=== PATIENT | male | born 1940 | race Caucasian/White ===

== ENCOUNTER 2019-02-11 20:33 | Emergency (ER) | payer OTHER ==
[2019-02-11 21:36] LABS: Urine Blood NEGATIVE (NEG); Urine Glucose NEGATIVE (NEG); Urine Protein TRACE (NEG); Urine pH 5.5 (5.0-7.0)
[2019-02-11 22:37] LABS: Protime INR 1.18
[2019-02-11 22:43] LABS: Absolute Lymphocytes (CBC) 0.9 K/uL (0.7-4.9); Absolute Monocytes 0.8 K/uL (0.1-1.3); Absolute Neutrophil 8.7 K/uL (1.8-8.0); Basophils % 0.4 % (0-1.3); Eosinophils % 0.8 % (0-4.4); Hematocrit 46.8 % (39.6-49.0); MPV 8.4 fL (7.6-11.3); Monocytes % 7.6 % (3.3-12.3); RBC Red Blood Cell Count 4.86 M/uL (4.33-5.43)
[2019-02-11 22:56] LABS: ALT/SGPT 15 U/L (12-78); AST/SGOT 9 U/L (15-37); Albumin 3.4 g/dL (3.4-5.0); Alkaline Phosphatase 47 U/L (45-117); BUN Blood Urea Nitrogen 29 mg/dL (7-18); Bicarbonate 23 mmol/L (21-32); Bilirubin Direct 0.1 mg/dL (0-0.2); Bilirubin Total 0.6 mg/dL (0.2-1.0); Glucose Level 121 mg/dL (74-106); NT PRO-BNP 702 pg/mL (<450); Potassium 4.4 mmol/L (3.5-5.1); Protein, Total 7.4 g/dL (6.4-8.2); Sodium Level 140 mmol/L (136-145); Troponin (Emerg Dept Use Only) < 0.02 ng/mL (0.0-0.045)
[2019-02-12] MEDS ORDERED: MECLIZINE HCL 12.5 MG TAB ONE (00:28)
--- NOTE | 2019-02-12 00:54 | EDPHYS ---
Physician Documentation [facility] Name: Manuelito Najera Age: 78 yrs Sex: Male : 1940 Arrival Date: 02/11/2019 Time: 20:34 Bed 20 Private MD: Gavin Saeed ED Physician Francesco Canchola HPI: 02/11 23:00 This 78 yrs old Male presents to ER via Ambulatory with complaints of pm1 Dizziness, Can't walk, Nausea. 23:00 The patient presents with vertigo. Onset: The symptoms/episode began/occurred 2 year(s) pm1 ago, worse for the past 2 weeks. Context: occurred at home, occurred while the patient was changing position and worse with putting his head forward. just prior to the episode the patient experienced no apparent symptoms. Modifying factors: the symptoms are aggravated by movement of head, changing position. Associated signs and symptoms: Pertinent negatives: abdominal pain, blurred vision, chest pain, focal weakness, numbness, shortness of breath, vomiting. Severity of symptoms: in the emergency department the symptoms are worse. Patient's baseline: Neuro: alert and fully oriented, Motor: no deficits, Ambulation: walks without assistance. The patient has not experienced similar symptoms in the past. Has seen multiple neurologist for the same complaint and instructed to take OTC Dramamine recently. Historical: - Allergies: 20:45 No Known Allergies; ak1 - Home Meds: 21:02 B-12 1000 [Active]; aspirin 81 mg Oral chew 1 tab once daily [Active]; carvedilol 12.5 bb mg oral tab [Active]; Zantac Oral [Active]; alfalfa oral oral [Active]; prostate lest [Active]; - PMHx: 20:45 Hypertension; Hyperlipidemia; ak1 - PSHx: 20:45 back sx; Carpal Tunnel Repair; ak1 - Immunization history:: Adult Immunizations unknown. - Social history:: Smoking status: Patient/guardian denies using tobacco. - Ebola Screening: : No symptoms or risks identified at this time. ROS: 23:00 Constitutional: Negative for fever, chills, and weight loss, Eyes: Negative for injury, pm1 pain, redness, and discharge, ENT: Negative for injury, pain, and discharge, Neck: Negative for injury, pain, and swelling, Cardiovascular: Negative for chest pain, palpitations, and edema, Respiratory: Negative for shortness of breath, cough, wheezing, and pleuritic chest pain, Abdomen/GI: Negative for abdominal pain, nausea, vomiting, diarrhea, and constipation, Back: Negative for injury and pain, : Negative for injury, bleeding, discharge, and swelling, MS/Extremity: Negative for injury and deformity, Skin: Negative for injury, rash, and discoloration. 23:00 Neuro: Positive for dizziness, Negative for numbness, tingling. Exam: 23:00 Constitutional: This is a well developed, well nourished patient who is awake, alert, pm1 and in no acute distress. Head/Face: Normocephalic, atraumatic. ENT: Nares patent. No nasal discharge, no septal abnormalities noted. Tympanic membranes are normal and external auditory canals are clear. Oropharynx with no redness, swelling, or masses, exudates, or evidence of obstruction, uvula midline. Mucous membranes moist. Neck: Trachea midline, no thyromegaly or masses palpated, and no cervical lymphadenopathy. Supple, full range of motion without nuchal rigidity, or vertebral point tenderness. No Meningismus. 23:00 Chest/axilla: Normal chest wall appearance and motion. Nontender with no deformity. No lesions are appreciated. Cardiovascular: Regular rate and rhythm with a normal S1 and S2. No gallops, murmurs, or rubs. Normal PMI, no JVD. No pulse deficits. Respiratory: Lungs have equal breath sounds bilaterally, clear to auscultation and percussion. No rales, rhonchi or wheezes noted. No increased work of breathing, no retractions or nasal flaring. Abdomen/GI: Soft, non-tender, with normal bowel sounds. No distension or tympany. No guarding or rebound. No evidence of tenderness throughout. Back: No spinal tenderness. No costovertebral tenderness. Full range of motion. Skin: Warm, dry with normal turgor. Normal color with no rashes, no lesions, and no evidence of cellulitis. MS/ Extremity: Pulses equal, no cyanosis. Neurovascular intact. Full, normal range of motion. 23:00 Eyes: Nystagmus: vestibular nystagmus. 23:00 Neuro: Orientation: is normal, Motor: is normal, moves all fours. Vital Signs: 20:45 BP 139 / 94; Pulse 113; Resp 18; Temp 100.1; Pulse Ox 97% on R/A; Weight 95.25 kg (R); ak1 Height 6 ft. 0 in. (182.88 cm) (R); Pain 3/10; 21:49 BP 134 / 67; Pulse 88; Resp 21; Pulse Ox 96% on R/A; Pain 0/10; ao 23:43 BP 141 / 83; Pulse 102; Resp 16; Temp 98.3(O); Pulse Ox 96% on R/A; jb4 02/12 00:26 BP 139 / 70; Pulse 83; Resp 18; Pulse Ox 98% on R/A; oe 02/11 20:45 Body Mass Index 28.48 (95.25 kg, 182.88 cm) ak1 MDM: 02/11 21:49 Patient medically screened. pm1 02/12 00:22 Data reviewed: vital signs. Data interpreted: Pulse oximetry: on room air is 96 %. pm1 Interpretation: normal. Counseling: I had a detailed discussion with the patient and/or guardian regarding: the historical points, exam findings, and any diagnostic results supporting the discharge/admit diagnosis, lab results, radiology results, the need for outpatient follow up, to return to the emergency department if symptoms worsen or persist or if there are any questions or concerns that arise at home. 00:49 ED course: symptoms greatly improved with meclizine given in the ER. pm1 02/11 21:07 Order name: Urine Dipstick--Ancillary (enter results); Complete Time: 22:07 [facility] 02/11 22:08 Order name: Basic Metabolic Panel pm1 02/11 22:08 Order name: CBC with Diff; Complete Time: 23:46 pm1 02/11 22:08 Order name: LFT's; Complete Time: 23:46 pm1 02/11 22:08 Order name: Magnesium; Complete Time: 23:46 pm1 02/11 22:08 Order name: NT PRO-BNP; Complete Time: 23:46 pm1 02/11 22:06 Order name: CT Head Brain wo Cont pm1 02/11 22:08 Order name: PT-INR; Complete Time: 23:46 pm1 02/11 22:08 Order name: Troponin (emerg Dept Use Only); Complete Time: 23:46 pm1 02/11 22:08 Order name: XRAY Chest (1 view) pm1 02/11 22:08 Order name: EKG; Complete Time: 22:09 pm1 02/11 22:08 Order name: Cardiac monitoring; Complete Time: 22:16 pm1 02/11 22:09 Order name: Basic Metabolic Panel; Complete Time: 23:46 EDMS 02/11 22:08 Order name: EKG - Nurse/Tech; Complete Time: 22:16 pm1 02/11 22:08 Order name: IV Saline Lock; Complete Time: 22:16 pm1 02/11 22:08 Order name: Labs collected and sent; Complete Time: 22:16 pm1 02/11 22:08 Order name: O2 Per Protocol; Complete Time: 22:16 pm1 02/11 22:08 Order name: O2 Sat Monitoring; Complete Time: 22:16 pm1 Administered Medications: 00:18 Drug: Meclizine 50 mg Route: PO; ao 01:52 Follow up: Response: No adverse reaction ao Disposition: 01:54 Co-signature as Attending Physician, Francesco Canchola MD. chrissie Disposition: 02/12/19 00:53 Discharged to Home. Impression: Benign paroxysmal vertigo. - Condition is Stable. - Discharge Instructions: Benign Positional Vertigo. - Prescriptions for Meclizine 25 mg Oral Tablet - take 1 tablet by ORAL route every 8 hours As needed; 30 tablet. - Medication Reconciliation Form, Thank You Letter, Antibiotic Education, Prescription Opioid Use form. - Follow up: Emergency Department; When: As needed; Reason: Worsening of condition. Follow up: Private Physician; When: 2 - 3 days; Reason: Recheck today's complaints, Continuance of care, Re-evaluation by your physician. - Problem is new. - Symptoms have improved. Signatures: Dispatcher [employer] EDFrancesco Zhu MD MD pkSilvia Weaver RN RN bb Krenek, Amber, RN RN ak1 Ortiz, Alex RN Ritesh Laws, MUSHROOM PRESS OPERATOR MUSHROOM PRESS OPERATOR pm1 Corrections: (The following items were deleted from the chart) 01:48 00:53 02/12/2019 00:53 Discharged to Home. Impression: Benign paroxysmal vertigo. ao Condition is Stable. Forms are Medication Reconciliation Form, Thank You Letter, Antibiotic Education, Prescription Opioid Use. Follow up: Emergency Department; When: As needed; Reason: Worsening of condition. Follow up: Private Physician; When: 2 - 3 days; Reason: Recheck today's complaints, Continuance of care, Re-evaluation by your physician. Problem is new. Symptoms have improved. pm1
--- NOTE | 2019-02-12 00:54 | ER ---
Nurse's Notes [facility] Name: Manuelito Najera Age: 78 yrs Sex: Male : 1940 Arrival Date: 02/11/2019 Time: 20:34 Bed 20 Private MD: Gavin Saeed Diagnosis: Benign paroxysmal vertigo Presentation: 02/11 20:41 Presenting complaint: Patient states: dizziness X2 years, dizziness stops after sitting ak1 down increased with standing and bending. pt c/o generalized weakness "for a couple of years" "some days are worse some days are better". Transition of care: patient was not received from another setting of care. Onset of symptoms is unknown. Risk Assessment: Do you want to hurt yourself or someone else? Patient reports no desire to harm self or others. Care prior to arrival: None. 20:41 Method Of Arrival: Ambulatory ak1 20:41 Acuity: EVGENY 3 ak1 21:32 Initial Sepsis Screen: Does the patient meet any 2 criteria? No. Patient's initial ao sepsis screen is negative. Does the patient have a suspected source of infection? No. Patient's initial sepsis screen is negative. Triage Assessment: 20:45 General: Appears uncomfortable, Behavior is cooperative. ak1 21:32 GI: Reports. ao Historical: - Allergies: 20:45 No Known Allergies; ak1 - Home Meds: 21:02 B-12 1000 [Active]; aspirin 81 mg Oral chew 1 tab once daily [Active]; carvedilol 12.5 bb mg oral tab [Active]; Zantac Oral [Active]; alfalfa oral oral [Active]; prostate lest [Active]; - PMHx: 20:45 Hypertension; Hyperlipidemia; ak1 - PSHx: 20:45 back sx; Carpal Tunnel Repair; ak1 - Immunization history:: Adult Immunizations unknown. - Social history:: Smoking status: Patient/guardian denies using tobacco. - Ebola Screening: : No symptoms or risks identified at this time. Screenin:31 Abuse screen: Denies threats or abuse. Denies injuries from another. Nutritional ao screening: No deficits noted. Tuberculosis screening: No symptoms or risk factors identified. Fall Risk Fall in past 12 months (25 points). Assessment: 21:00 General: Appears in no apparent distress. uncomfortable, Behavior is calm, cooperative, ao appropriate for age. Pain: Denies pain. Neuro: No deficits noted. Level of Consciousness is awake, alert, obeys commands, Oriented to person, place, time, situation, Appropriate for age Moves all extremities. Full function Speech is normal, is slurred, Reports blurred vision dizziness, weakness since 3 months. Cardiovascular: Capillary refill < 3 seconds Patient's skin is warm and dry. Respiratory: Airway is patent Respiratory effort is even, unlabored, Respiratory pattern is regular, symmetrical. GI: Abdomen is flat, non-distended. : No signs and/or symptoms were reported regarding the genitourinary system. EENT: No signs and/or symptoms were reported regarding the EENT system. Derm: No signs and/or symptoms reported regarding the dermatologic system. Skin is intact. Musculoskeletal: No signs and/or symptoms reported regarding the musculoskeletal system. 23:44 Reassessment: Patient appears in no apparent distress at this time. Patient and/or jb4 family updated on plan of care and expected duration. Pain level reassessed. Patient is alert, oriented x 3, equal unlabored respirations, skin warm/dry/pink. Pt is sitting in the bedside chair. 02/12 01:46 Reassessment: DC instructions given to patient. Patient agree with the POC and to ao follow up with PCP. Patient has no questions. Vital Signs: 02/11 20:45 BP 139 / 94; Pulse 113; Resp 18; Temp 100.1; Pulse Ox 97% on R/A; Weight 95.25 kg (R); ak1 Height 6 ft. 0 in. (182.88 cm) (R); Pain 3/10; 21:49 BP 134 / 67; Pulse 88; Resp 21; Pulse Ox 96% on R/A; Pain 0/10; ao 23:43 BP 141 / 83; Pulse 102; Resp 16; Temp 98.3(O); Pulse Ox 96% on R/A; jb4 02/12 00:26 BP 139 / 70; Pulse 83; Resp 18; Pulse Ox 98% on R/A; oe 02/11 20:45 Body Mass Index 28.48 (95.25 kg, 182.88 cm) ak1 ED Course: 02/11 20:34 Patient arrived in ED. am2 20:34 Gavin Saeed DO is Private Physician. am2 20:43 Triage completed. ak1 20:45 Arm band placed on Patient placed in an exam room, Patient notified of wait time. ak1 21:31 Patrick Rosenbaum, RN is Primary Nurse. ao 21:32 Patient has correct armband on for positive identification. potline monitor on. Pulse ao ox on. NIBP on. 21:39 Ritesh Fuentes NP is PHCP. pm1 21:39 Francesco Canchola MD is Attending Physician. pm1 22:[address] vm2 22:22 XRAY Chest (1 view) In Process Unspecified. EDMS 22:32 CT completed. Patient tolerated procedure well. Patient moved back from CT. nj 22:39 CT Head Brain wo Cont In Process Unspecified. EDMS 04 01:47 No provider procedures requiring assistance completed. IV discontinued, intact, ao bleeding controlled, No redness/swelling at site. Pressure dressing applied. Administered Medications: 00:18 Drug: Meclizine 50 mg Route: PO; ao 01:52 Follow up: Response: No adverse reaction ao Outcome: 00:53 Discharge ordered by MD. pm1 01:47 Discharged to home ambulatory. ao 01:47 Condition: stable 01:47 Discharge instructions given to patient, family, Instructed on discharge instructions, follow up and referral plans. Demonstrated understanding of instructions, follow-up care, medications, Prescriptions given X 1. 01:48 Patient left the ED. ao Signatures: Dispatcher [employer] EDMS Silvia Nicolas RN RN bb Krenek, Amber, RN RN ak1 Patrick Rosenbaum, Ritesh Laws RN, NP PREP COOK pm1 Rafi Gallo RN RN jb4 Jordan, Nathan nj Espinosa, Orlando oe Moreno, Amanda amXimena Kebede [facility]
--- NOTE | 2019-02-12 07:34 | EKG ---
Test Date: 2019-02-11 Test Time: 22:22:55 [employer] Worker: CHAYITO MEASUREMENT RESULTS: Intervals: Rate: 81 MS: 154 QRSD: 100 QT: 388 QTc: 450 [place]: P: -5 MS: 154 QRS: -66 T: 34 INTERPRETIVE STATEMENTS: Normal sinus rhythm Left anterior fascicular block Abnormal ECG Compared to ECG 12/11/2000 09:39:00 Left anterior fascicular block now present Sinus arrhythmia no longer present Electronically Signed On 02-12-19 07:33:37 CDT by Zaheer Low
--- NOTE | 2019-02-12 08:17 | RAD REPORT ---
EXAM DESCRIPTION: RAD - Chest Single View - 02/11/2019 10:22 pm CLINICAL HISTORY: dizziness Chest pain. COMPARISON: No comparisons FINDINGS: Portable technique limits examination quality. The lungs are grossly clear. The heart is normal in size. No displaced fractures. IMPRESSION: No acute intrathoracic process suspected.
--- NOTE | 2019-02-13 11:13 | RAD REPORT ---
EXAM DESCRIPTION: CT Head Brain Wo Cont CLINICAL HISTORY: 78 years Male DIZZINESS TECHNIQUE: Contiguous axial CT images obtained through the brain without IV contrast. Coronal and sagittal reformatted images also provided. This exam was performed according to our department optimization program which includes automated exp osure control, adjustment of the mA and/or kv according to patient size and/or use of iterative recon struction technique. COMPARISON: No prior exams provided for comparison. FINDINGS: There is no intracranial hemorrhage, extraaxial collection, or evidence of acute transcort ical infarction. Patchy areas of low attenuation within the periventricular and subcortical white matter are most comp atible with chronic microvascular disease. There are basal ganglia calcifications and moderate diff use volume loss without mass effect or midline shift. Dieter cisterna magna incidentally noted. Vascular calcifications are noted. No lesion of the skull base or calvarium is identified. Small mucosal polyp in the right maxillary sinus. The remainder of the visualized paranasal sinuses a nd mastoid air cells are clear. IMPRESSION: No acute intracranial abnormality. Chronic microvascular changes and volume loss. Electronically signed by: Niharika Castellon MD 02/11/2019 10:53 PM CDT Due to temporary technical issues with the PACS/Fluency reporting system, reports are being signed by the in house radiologist as a courtesy to ensure prompt reporting. The interpreting radiologist is f chuckyly responsible for the content of the report.
== END 2019-02-12 01:48 | disposition home or self-care (01) ==
LOC: ER 20:33
DX: H81.10 Benign paroxysmal vertigo, unspecified ear (principal); I10 Essential (primary) hypertension; E78.5 Hyperlipidemia, unspecified
CPT/HCPCS: 36415; 70450; 71045; 80048; 80076; 81003; 83735; 83880; 84484; 85025; 85610; 93005; 99285

== ENCOUNTER 2020-08-26 11:52 | Emergency (ER) | payer OTHER ==
--- OUTSIDE RECORDS SUMMARY | 2020-08-26 12:12 | XMS REPORT | Clinical Summary ---
:1940 Author Organization [facility] Address [address] [place] [id number] Care Team Providers Name Role Phone Gavin Saeed Primary Care Provider Allergies No Known Active Allergies Medications Medication Sig Dispensed Refills Start Date End Date Status carvedilol (COREG) 12.5 Take 12.5 mg by 0 Active MG tablet mouth 2 (two) times a day with meals. pentoxifylline (TRENTal) Take 400 mg by 0 Active 400 mg CR tablet mouth 3 (three) times a day with meals. Active Problems Not on file Surgical History Surgery Date Site/Laterality Comments HAND SURGERY Right BACK SURGERY Family History Medical History Relation Name Comments No Known Problems Father No Known Problems Mother Relation Name Status Comments Father Mother Social History Tobacco Use Types Packs/Day Years Used Date Never Smoker Smokeless Tobacco: Never Used Alcohol Use Drinks/Week oz/Week Comments No Alcohol Habits Answer Date Recorded How often do you have a drink containing alcohol? Never 12/10/2018 How many drinks containing alcohol do you have on a typical Not asked day when you are drinking? How often do you have six or more drinks on one occasion? No t asked Sex Assigned at Date Recorded Not on file Last Filed Vital Signs Not on file Plan of Treatment Health Maintenance Due Date Last Done Comments SHINGLES VACCINES (#1) 1991 65+ PNEUMOCOCCAL VACCINE (1 of 1 - PPSV23) 2006 INFLUENZA VACCINE 05/29/2020 Results Not on fileafter 08/26/2019 Advance Directives For more information, please contact: [phone] Type Date Recorded Patient Assistant Account Executive Explanati on Advance Directives, Living Will and Medical Power of Cigarette Packer
[2020-08-26] MEDS ORDERED: NA CHLORIDE 0.9% 500 ML ONE ×2 (12:38→17:01)
[2020-08-26] MEDS ORDERED: ONDANSETRON 4 MG/2 ML VIAL ONE (12:38)
[2020-08-26] MEDS ORDERED: MORPHINE 2 MG/ML SYR ONE (12:38)
[2020-08-26] MEDS ORDERED: FAMOTIDINE 20 MG/2 ML VIAL IV ONE (12:38)
[2020-08-26 12:43] LABS: Absolute Lymphocytes (CBC) 2.4 K/uL (0.7-4.9); Basophils % 0.3 % (0-1.3); Hematocrit 30.4 % (39.6-49.0); Lymphocytes % 20.9 % (15.3-44.8); MPV 8.5 fL (7.6-11.3); RBC Red Blood Cell Count 3.12 M/uL (4.33-5.43)
[2020-08-26 12:47] LABS: Protime INR 1.18
[2020-08-26 12:57] LABS: Albumin 2.9 g/dL (3.4-5.0); Bilirubin Direct 0.1 mg/dL (0-0.2); Bilirubin Total 0.4 mg/dL (0.2-1.0); Magnesium 2.8 mg/dL (1.8-2.4); Potassium 4.9 mmol/L (3.5-5.1); Protein, Total 6.1 g/dL (6.4-8.2)
--- NOTE | 2020-08-26 15:02 | RAD REPORT ---
EXAM DESCRIPTION: CT - Abdomen Pelvis Wo Contrast - 08/26/2020 2:40 pm CLINICAL HISTORY: ABD PAIN COMPARISON: No comparisons TECHNIQUE: Axial [address] imaging of the abdomen and pelvis was performed without IV contrast. No IV contrast was given because of allergy, abnormal renal function, patient refusal or physician re quest. Oral contrast was given. All CT scans are performed using dose optimization technique as appropriate and may include automated exposure control or mA/KV adjustment according to patient size. FINDINGS: No suspicious findings in the lung bases. The liver, spleen and pancreas show no suspicious findings on non-contrast imaging. A 10 millimeter g allstone is present at the neck of the gallbladder near the cystic duct. There is an adjacent 4 jenny meter gallstone. Gallbladder is not distended. No biliary tree dilatation. No hydronephrosis or suspicious renal mass. Small left-sided parapelvic cysts are present. The right kidney is significantly atrophic and likely has little or no function. No worrisome right renal mass. No significant adrenal finding. Isodense renal masses and pyelonephritis cannot be excluded in the absence of IV contrast. The urinary bladder is without significant finding. Small hiatal hernia is present. No gastric wall thickening or mass. Heller of the proximal duodenum ap pear slightly thickened or edematous. This could be true wall thickening or an artifact of peristalsi s. Distal duodenum is unremarkable. Remainder of the small bowel unremarkable as well. The appendix i s normal. Patient has a large fatty ileocecal valve as a normal variant. Sigmoid is tortuous and redu ndant. Diverticulosis is mild for age. No diverticulitis. No active colon process. No free air, free fluid or pneumatosis. There is trace amount of stranding adjacent to the proximal duodenum. No mass or bulky lymphadenopathy. Small to moderate-sized fat filled right inguinal hernia present. No suspicious bony findings. Disc and bone degenerative changes are present. IMPRESSION: A 10 millimeter gallstone is present in the neck of the gallbladder and would be a possi ble source for pain. Gallbladder is not distended. No biliary tree dilatation. Duodenal bulb and proximal duodenal C-loop show wall thickening with a trace amount of stranding. Thi s is often a peristalsis artifact. A mild duodenitis would be possible. Sigmoid diverticulosis without diverticulitis. No acute colon or small bowel process otherwise noted. Additional nonacute findings detailed in the body of the report. Full assessment is limited is the absence of IV contrast.
--- NOTE | 2020-08-26 16:09 | ER ---
Nurse's Notes [facility] Name: Manuelito Najera Age: 79 yrs Sex: Male : 1940 Arrival Date: 08/26/2020 Time: 11:54 Bed 14 Private MD: Diagnosis: Gastrointestinal hemorrhage, unspecified;Anemia in other chronic diseases classified elsewhere;Unspecified kidney failure Presentation: 08/26 12:12 Chief complaint: Patient states: abd pain x 1 week. N/V that began yesterday. ss Coronavirus screen: Client denies travel out of the [place] in the last 14 days. Ebola Screen: Patient denies exposure to infectious person. Patient denies travel to an Ebola-affected area in the 21 days before illness onset. Initial Sepsis Screen: Does the patient meet any 2 criteria? HR > 90 bpm. Does the patient have a suspected source of infection? No. Patient's initial sepsis screen is negative. Risk Assessment: Do you want to hurt yourself or someone else? Patient reports no desire to harm self or others. Onset of symptoms was August 19, 2020. 12:12 Method Of Arrival: Ambulatory ss 12:12 Acuity: EVGENY 3 ss Historical: - Allergies: 12:15 No Known Allergies; ss - Home Meds: 16:18 allopurinol 100 mg Oral tab 1 tab once daily [Active]; pravastatin 40 mg oral tab 1 tab ss once daily [Active]; aspirin 81 mg oral TbEC 1 tab once daily [Active]; losartan 25 mg oral tab 0.5 tab once daily [Active]; - PMHx: 12:15 Hyperlipidemia; Hypertension; ss 16:18 GERD; ss 17:58 Parkinsons; ss - PSHx: 12:15 Carpal Tunnel Repair; back sx; ss - Immunization history:: Adult Immunizations up to date. - Social history:: Smoking status: Patient denies any tobacco usage or history of. Screenin:12 Fall Risk None identified. ss 13:57 Abuse screen: Denies threats or abuse. Nutritional screening: No deficits noted. ll2 Tuberculosis screening: No symptoms or risk factors identified. Assessment: 12:12 General: Appears uncomfortable, Behavior is calm, cooperative. Pain: Complains of pain ss in abdomen Pain currently is 10 out of 10 on a pain scale. Quality of pain is described as aching, Pain began x 2 weeks. Worse since yesterday Is intermittent. Cardiovascular: Capillary refill < 3 seconds is brisk in bilateral fingers. GI: Abd is soft X 4 quads Abdomen is tender to palpation in center of abd Reports nausea, vomiting, since yesterday. GI: Bowel sounds present X 4 quads. : Denies burning with urination, urinary frequency. EENT: Nares are clear. Derm: Skin is intact, is healthy with good turgor, Skin is dry, Skin is pink, warm \T\ dry. normal. Musculoskeletal: Circulation, motion, and sensation intact. Range of motion: intact in all extremities, Swelling absent. 12:57 Reassessment: Patient appears in no apparent distress at this time. Patient and/or ss family updated on plan of care and expected duration. Pain level reassessed. Patient states feeling better. Patient states symptoms have improved. Pt reports much relief after medication administration. Awaiting CT scan. Mimi biometric fingerprinting technician notified that patient completed drinking oral contrast 8 minutes ago. . Neuro: Level of Consciousness is awake, alert. Respiratory: Airway is patent Respiratory effort is even, unlabored. 14:32 Reassessment: Pt is resting at this time. Eyes closed. Respirations remain even and ss unlabored. 14:36 Reassessment: Pt to CT now. 15:30 Reassessment: Patient appears in no apparent distress at this time. Patient and/or ss family updated on plan of care and expected duration. Pain level reassessed. Patient is alert, oriented x 3, equal unlabored respirations, skin warm/dry/pink. 16:30 Reassessment: No changes from previously documented assessment. 18:02 Reassessment: Report called to FARIDA Bar. Awaiting [facility] ambulance for transportation to [facility] who reports that ETA will be approximately 1.5 hours. Family and patient updated on plan of care. Vital Signs: 12:07 BP 124 / 79; Pulse 107; Resp 20; Temp 98.9(O); Pulse Ox 98% on R/A; Weight 93.89 kg jp3 (R); Height 6 ft. 0 in. (182.88 cm) (R); Pain 8/10; 13:57 BP 96 / 54; Pulse 97; Resp 16; Pulse Ox 98% on R/A; ll2 15:00 BP 113 / 66; Pulse 89; Resp 16; Pulse Ox 99% on R/A; em 16:11 BP 108 / 68; Pulse 96; Resp 17; Pulse Ox 97% on R/A; em 12:07 Body Mass Index 28.07 (93.89 kg, 182.88 cm) jp3 ED Course: 11:54 Patient arrived in ED. ds1 12:06 Kapil Hines PA is PHCP. cp 12:06 Lalit Rahman MD is Attending Physician. cp 12:09 Patient has correct armband on for positive identification. Call light in reach. Side jp3 rails up X 1. PT asked for ICE pack for chronic back pain. Pulse ox on. NIBP on. 12:10 Patient maintains SpO2 saturation greater than 95% on room air. jp3 12:12 Annalisa Flores RN is Primary Nurse. ss 12:13 Triage completed. ss 12:15 Arm band placed on right wrist. ss 12:37 No provider procedures requiring assistance completed. Inserted saline lock: 20 gauge ss in right antecubital area, using aseptic technique. Blood collected. 14:39 Abdomen In Process Unspecified. EDMS 16:00 initiated a transfer with Cheryl from the [facility] [place]. eb 16:[address] Rodriguez the hospitalist applications manager for [facility] with Kapil Lind for patient transfer consultation. 17:31 administrative approval given by Cheryl Aceves Rn/ patient has been accepted to [facility] 9 tower 951/ Dr. Lisy Rodriguez has accepted the patient in transfer/ report to be called to the transfer center at [phone]. 17:49 Patient transferred, IV remains in place. ss Administered Medications: 12:26 Drug: NS 0.9% 500 ml Route: IV; Rate: 500 ml/hr; Site: right antecubital; em 13:30 Follow up: IV Status: Completed infusion; IV Intake: 500ml ss 12:35 Drug: morphine 2 mg Route: IVP; Site: right antecubital; ll2 13:00 Follow up: Response: No adverse reaction; Pain is decreased ss 12:36 Drug: Zofran (Ondansetron) 4 mg Route: IVP; Site: right antecubital; ll2 13:00 Follow up: Response: No adverse reaction; Nausea is decreased ss 12:36 Drug: Pepcid 20 mg Route: IVP; Site: right antecubital; ll2 13:00 Follow up: Response: No adverse reaction ss 16:24 Drug: ProTONIX 40 mg Route: IVP; Site: right antecubital; ss 18:47 Follow up: Response: No adverse reaction ss 16:25 Drug: ProTONIX 8 mg/hr Route: IV; Rate: 25 ml/hr; Site: right antecubital; ss 16:34 Follow up: IV Status: Infusion continued upon transfer ss 16:53 Drug: NS 0.9% 500 ml Route: IV; Rate: 250 ml/hr; Site: right antecubital; Intake: 13:30 IV: 500ml; Total: 500ml. ss Outcome: 16:09 ER care complete, transfer ordered by . cp 17:49 Condition: stable ss 17:49 Instructed on the need for transfer. 21:21 Transferred by ground EMS Transfer form completed. ea 21:22 Patient left the ED. ea Signatures: Dispatcher [employer] Lencho Boyd RN RN Christina Gr ds1 Annalisa Flores RN RN ss Page, Corey, PA PA cp Antunez, Elena RN RN Vera Parr Jacob jp3 Emelyn Arriola RN RN ll2 Corrections: (The following items were deleted from the chart) 18:03 17:50 Reassessment: Patient appears in no apparent distress at this time. Patient ss and/or family updated on plan of care and expected duration. Pain level reassessed. Patient is alert, oriented x 3, equal unlabored respirations, skin warm/dry/pink. attempting to call report now to FARIDA Atkins at [facility] ss
--- NOTE | 2020-08-26 16:10 | EDPHYS ---
Physician Documentation [facility] Name: Manuelito Najera Age: 79 yrs Sex: Male : 1940 Arrival Date: 08/26/2020 Time: 11:54 Bed 14 Private MD: ED Physician Lalit Rahman HPI: 08/26 12:20 This 79 yrs old Male presents to ER via Ambulatory with complaints of cp Abdominal Pain, Nausea/Vomiting. 12:20 The patient presents with abdominal pain mid abdomen. Onset: The symptoms/episode cp began/occurred 1 week(s) ago. The symptoms do not radiate. Associated signs and symptoms: Pertinent positives: nausea and vomiting since last night, dark colored stool, Pertinent negatives: chest pain, constipation, diarrhea, fever. Historical: - Allergies: 12:15 No Known Allergies; ss - Home Meds: 16:18 allopurinol 100 mg Oral tab 1 tab once daily [Active]; pravastatin 40 mg oral tab 1 tab ss once daily [Active]; aspirin 81 mg oral TbEC 1 tab once daily [Active]; losartan 25 mg oral tab 0.5 tab once daily [Active]; - PMHx: 12:15 Hyperlipidemia; Hypertension; ss 16:18 GERD; ss 17:58 Parkinsons; ss - PSHx: 12:15 Carpal Tunnel Repair; back sx; ss - Immunization history:: Adult Immunizations up to date. - Social history:: Smoking status: Patient denies any tobacco usage or history of. ROS: 12:25 Constitutional: Positive for poor PO intake, Negative for body aches, chills, fever. cp 12:25 Eyes: Negative for injury, pain, redness, and discharge. cp 12:25 Cardiovascular: Negative for chest pain, edema, palpitations. 12:25 Respiratory: Negative for cough, shortness of breath, wheezing. 12:25 Abdomen/GI: Positive for abdominal pain, nausea and vomiting, constipation, black/tarry stool, Negative for diarrhea, hematemesis. 12:25 Back: Negative for radiated pain. 12:25 : Negative for urinary symptoms. 12:25 Neuro: Positive for general weakness, Negative for altered mental status, dizziness, headache. 12:25 All other systems are negative. Exam: 12:30 Constitutional: The patient appears in no acute distress, alert, awake, cp non-diaphoretic, non-toxic, well developed, well nourished. 12:30 Head/Face: Normocephalic, atraumatic. cp 12:30 Eyes: Periorbital structures: appear normal, Conjunctiva: normal, no exudate, no injection, Sclera: no appreciated abnormality, Lids and lashes: appear normal, bilaterally. 12:30 ENT: External ear(s): are unremarkable, Nose: is normal, Mouth: Lips: dry, Oral mucosa: moist, Posterior pharynx: Airway: no evidence of obstruction, patent. 12:30 Neck: ROM/movement: is normal, is supple, without pain, no range of motions limitations, no meningismus. 12:30 Chest/axilla: Inspection: normal, Palpation: is normal, no crepitus, no tenderness. 12:30 Cardiovascular: Rate: tachycardic, Rhythm: regular, Edema: is not appreciated, JVD: is not appreciated. 12:30 Respiratory: the patient does not display signs of respiratory distress, Respirations: normal, no use of accessory muscles, no retractions, labored breathing, is not present, Breath sounds: are clear throughout, no decreased breath sounds, no stridor, no wheezing. 12:30 Abdomen/GI: Inspection: abdomen appears normal, Bowel sounds: active, all quadrants, Palpation: abdomen is soft and non-tender, in all quadrants, Rectal exam: Stool: guaiac positive, black. 12:30 Back: CVA tenderness, is absent. 12:30 Skin: no rash present. 12:30 Neuro: Orientation: to person, place \T\ time. Mentation: is normal, Motor: moves all fours, general weakness with no focal deficits, Gait: is unsteady. Vital Signs: 12:07 BP 124 / 79; Pulse 107; Resp 20; Temp 98.9(O); Pulse Ox 98% on R/A; Weight 93.89 kg jp3 (R); Height 6 ft. 0 in. (182.88 cm) (R); Pain 8/10; 13:57 BP 96 / 54; Pulse 97; Resp 16; Pulse Ox 98% on R/A; ll2 15:00 BP 113 / 66; Pulse 89; Resp 16; Pulse Ox 99% on R/A; em 16:11 BP 108 / 68; Pulse 96; Resp 17; Pulse Ox 97% on R/A; em 12:07 Body Mass Index 28.07 (93.89 kg, 182.88 cm) jp3 MDM: 12:12 Patient medically screened. cp 15:15 Data reviewed: vital signs, nurses notes, lab test result(s), radiologic studies, CT cp scan. 15:15 Counseling: I had a detailed discussion with the patient and/or guardian regarding: the cp historical points, exam findings, and any diagnostic results supporting the discharge/admit diagnosis, lab results, radiology results, the need to transfer to another facility, [facility] does not immediately have the required specialist. Response to treatment: the patient's symptoms have mildly improved after treatment. 16:43 Physician consultation: DR Kc, gastrointestinal physician \\[facility], will consult on cp patient and requests transfer to hospitalist services. 08/26 12:14 Order name: Basic Metabolic Panel; Complete Time: 13:13 cp 08/26 15:09 Interpretation: Normal except: CL 109; GLUC 195; BUN 67; CRE 2.59; GFR 24; CA 8.1. cp 08/26 12:14 Order name: CBC with Diff; Complete Time: 13:13 cp 08/26 15:27 Interpretation: Normal except: WBC 11.3; RBC 3.12; HGB 10.8; HCT 30.4; GAURAV% 74.4; NEUT cp A 8.4. 08/26 12:14 Order name: Hepatic Function; Complete Time: 13:13 cp 08/26 12:14 Order name: Lipase; Complete Time: 13:13 cp 08/26 12:14 Order name: Urine Microscopic Only; Complete Time: 16:56 cp 08/26 12:14 Order name: PT-INR; Complete Time: 13:13 cp 08/26 12:14 Order name: Lactate; Complete Time: 13:13 cp 08/26 12:14 Order name: Magnesium; Complete Time: 13:13 cp 08/26 12:30 Order name: Type And Screen; Complete Time: 15:07 cp 08/26 12:39 Order name: PTT, Activated Partial Thromb; Complete Time: 13:13 EDMS 08/26 16:19 Order name: Urine Dipstick--Ancillary (enter results); Complete Time: 16:34 eb 08/26 21:00 Order name: ABO/RH no charge EDMS 08/26 12:14 Order name: IV Saline Lock; Complete Time: 12:52 cp 08/26 12:14 Order name: Labs collected and sent; Complete Time: 12:52 cp 08/26 12:14 Order name: Urine Dipstick-Ancillary (obtain specimen); Complete Time: 16:35 cp 08/26 14:39 Order name: Abdomen ; Complete Time: 15:07 EDMS 08/26 15:56 Order name: Vital Signs: please update vitals; Complete Time: 16:12 cp Administered Medications: 12:26 Drug: NS 0.9% 500 ml Route: IV; Rate: 500 ml/hr; Site: right antecubital; em 13:30 Follow up: IV Status: Completed infusion; IV Intake: 500ml ss 12:35 Drug: morphine 2 mg Route: IVP; Site: right antecubital; ll2 13:00 Follow up: Response: No adverse reaction; Pain is decreased ss 12:36 Drug: Zofran (Ondansetron) 4 mg Route: IVP; Site: right antecubital; ll2 13:00 Follow up: Response: No adverse reaction; Nausea is decreased ss 12:36 Drug: Pepcid 20 mg Route: IVP; Site: right antecubital; ll2 13:00 Follow up: Response: No adverse reaction ss 16:24 Drug: ProTONIX 40 mg Route: IVP; Site: right antecubital; ss 18:47 Follow up: Response: No adverse reaction ss 16:25 Drug: ProTONIX 8 mg/hr Route: IV; Rate: 25 ml/hr; Site: right antecubital; ss 16:34 Follow up: IV Status: Infusion continued upon transfer ss 16:53 Drug: NS 0.9% 500 ml Route: IV; Rate: 250 ml/hr; Site: right antecubital; ss Disposition: 08/27 15:52 Co-signature as Attending Physician, Lalit Rahman MD I agree with the assessment and kdr plan of care. Disposition: 08/26/20 16:09 Transfer ordered to [facility]. Diagnosis are Gastrointestinal hemorrhage, unspecified, Anemia in other chronic diseases classified elsewhere, Unspecified kidney failure. - Reason for transfer: Higher level of care. - Accepting physician is DR Shiekh. - Condition is Stable. - Problem is new. - Symptoms have improved. Signatures: Dispatcher [employer] EDMS Lalit Rahman MD MD kdr Munoz, Edgar, RN RN Annalisa Cruz RN RN ss Page, Corey, JOSE MANUEL PA cp Ebony Manley RN RN ea Emelyn Arriola, RN RN ll2 Corrections: (The following items were deleted from the chart) 08/26 12:39 12:31 PTT, ACTIVATED+COAG.LAB.BRZ ordered. EDMS EDMS 14:39 12:24 Abdomen Pelvis W Con+CT.RAD.BRZ ordered. EDMS EDMS 15:14 15:09 Normal except: CL 109; GLUC 195; BUN 67; CRE 2.59; GFR 24. cp cp 17:33 16:09 08/26/2020 16:09 Transfer ordered to [facility]. cp Diagnosis is Gastrointestinal hemorrhage, unspecified; Anemia in other chronic diseases classified elsewhere. Reason for transfer: Higher level of care. Accepting physician is Doctor. Condition is Stable. Problem is new. Symptoms have improved. cp 21:22 17:33 08/26/2020 16:09 Transfer ordered to [facility]. ea Diagnosis is Gastrointestinal hemorrhage, unspecified; Anemia in other chronic diseases classified elsewhere; Unspecified kidney failure. Reason for transfer: Higher level of care. Accepting physician is DR Rodriguez. Condition is Stable. Problem is new. Symptoms have improved. cp
[2020-08-26 16:27] LABS: Urine Blood NEGATIVE (NEG); Urine Glucose NEGATIVE (NEG); Urine Protein NEGATIVE (NEG); Urine pH 6.5 (5.0-7.0)
[2020-08-26] MEDS ORDERED: PANTOPRAZOLE 40 MG INJ ONE (16:37)
[2020-08-26 16:44] LABS: Urine Bacteria NONE SEEN /HPF (NONE SEEN); Urine RBC NONE SEEN /HPF (NONE SEEN)
[2020-08-26 16:45] LABS: Urine Culture Reflex Order NOT NEEDED
[2020-08-26] MEDS ORDERED: PANTOPRAZOLE INJ 80 MG in NA CHLORIDE 0.9% 250 ML IV SCH (17:00)
[2020-08-26 21:42] VITALS: TEMP 98.9
[2020-08-26 21:46] VITALS: BP 108/68; O2SAT 97
== END 2020-08-26 21:22 | disposition short-term general hospital (02) ==
LOC: ER 11:52
DX: I12.9 Hypertensive chronic kidney disease with stage 1 through stage 4 chronic kidney disease, or unspecified chronic kidney disease (principal); N18.9 Chronic kidney disease, unspecified; D63.8 Anemia in other chronic diseases classified elsewhere; G20 Parkinson's disease; Z79.82 Long term (current) use of aspirin
CPT/HCPCS: 96361; 85025; 80048; 36415; 86900; 83735; 86850; 85610; 86901; 80076; 83605; 85730; 83690; 74176; 96375; 96374; 99285; C9113 ×2; J2270; J7050; J7040 ×2; J2405; 81003; 81015

== ENCOUNTER 2022-01-10 15:47 | Emergency (ER) | payer OTHER ==
--- NOTE | 2022-01-10 16:44 | RAD REPORT ---
EXAM DESCRIPTION: CT - Spine Lumbar Wo Con - 01/10/2022 4:32 pm CLINICAL HISTORY: Radiculopathy. PAIN COMPARISON: No comparisons TECHNIQUE: Axial noncontrast CT imaging of the lumbar spine was performed with coronal and sagittal re-formatted images. All CT scans are performed using dose optimization technique as appropriate and may include automated exposure control or mA/KV adjustment according to patient size. FINDINGS: No acute lumbar spine fracture seen. No aggressive marrow pattern or malalignment. Paraspinal tissues are normal in thickness. No paraspinal abscess or hematoma seen. Multilevel moderately severe degenerative spondylosis is seen throughout the lumbar levels. No signif icant malalignment. Significant left lateral recess stenosis is present at L1-2. Moderate central can al stenosis and facet hypertrophy is present at L2-3, but less severe spondylosis at the lower lumbar levels. Mild sigmoid diverticulosis coli. Atrophy of the right kidney noted. IMPRESSION: No acute lumbar spine abnormality. Moderately severe multilevel degenerative spondylosis of the lumbar spine.
[2022-01-10] MEDS ORDERED: TRAMADOL HCL 50 MG TAB ONE (16:52)
--- NOTE | 2022-01-10 16:52 | RAD REPORT ---
EXAM DESCRIPTION: CT - Pelvis Wo Cont - 01/10/2022 4:32 pm CLINICAL HISTORY: pain, fall Trauma, pain and fall. COMPARISON: No comparisons TECHNIQUE: All CT scans are performed using dose optimization technique as appropriate and may inclu de automated exposure control or mA/KV adjustment according to patient size. 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 No fracture, dislocation or AVN patter n is observed. Moderate lower lumbar degenerative changes. Symmetric sacroiliac joints are present. Sacral ala show no evidence of fracture. Small fat containin g right inguinal hernia. Sigmoid diverticulosis coli without diverticulitis. IMPRESSION: No acute fracture is detected.
[2022-01-10] MEDS ORDERED: LIDOCAINE 4% PATCH ONE (16:54)
[2022-01-10 17:43] LABS: Urine Blood Negative (Negative); Urine Glucose Negative (Negative); Urine Protein Negative (Negative); Urine Specific Gravity 1.025 (1.005-1.030); Urine pH 5.5 (5.0-7.0)
[2022-01-10 18:04] LABS: Urine Bacteria <20 /HPF (NONE SEEN); Urine RBC <5 /HPF (NONE SEEN)
--- NOTE | 2022-01-10 18:10 | EDPHYS ---
Physician Documentation [facility] Name: Manuelito Najera Age: 81 yrs Sex: Male : 1940 Arrival Date: 01/10/2022 Time: 15:51 Bed 19 Private MD: ED Physician Bolivar Mohan HPI: 01/10 16:20 This 81 yrs old Male presents to ER via Wheelchair with complaints of Back Pain. cp 16:20 The patient presents with pain that is chronic, with no known mechanism of injury. The cp symptoms are located in the low back. 16:20 The pain radiates to the left leg and left hip. cp 16:20 Associated signs and symptoms: Pertinent negatives: abdominal pain, chest pain, fever, cp incontinence, urinary retention, weakness. 16:20 The problem was sustained from a chronic condition, became worse last week. Modifying cp factors: the patient symptoms are aggravated by movement, walking. 16:20 Patient reports a recent fall. cp Historical: - Allergies: 15:57 No Known Allergies; ab2 - Home Meds: 16:15 Zantac Oral [Active]; ag7 16:18 allopurinol 100 mg Oral tab 1 tab once daily [Active]; B-12 1000 [Active]; carvedilol ag7 12.5 mg Oral tab [Active]; losartan 25 mg Oral tab 0.5 tab once daily [Active]; pravastatin 40 mg Oral tab 1 tab once daily [Active]; prostate lest [Active]; - PMHx: 15:57 GERD; Hyperlipidemia; Hypertension; Parkinsons; ab2 - PSHx: 15:57 None; ab2 - Immunization history:: Adult Immunizations up to date. - Social history:: Smoking status: Patient denies any tobacco usage or history of. ROS: 16:30 Constitutional: Negative for body aches, chills, fever, poor PO intake. cp 16:30 Eyes: Negative for injury, pain, redness, and discharge. cp 16:30 Neck: Negative for pain with movement, pain at rest, stiffness. 16:30 Cardiovascular: Negative for chest pain, edema, palpitations. 16:30 Respiratory: Negative for cough, shortness of breath, wheezing. 16:30 Abdomen/GI: Negative for abdominal pain, nausea, vomiting, and diarrhea, constipation, black/tarry stool, rectal bleeding, bowel incontinence. 16:30 Back: Positive for pain at rest, pain with movement. 16:30 : Negative for urinary symptoms, bladder incontinence, testicular pain 16:30 Neuro: Negative for altered mental status, dizziness, headache, numbness, tingling, weakness. 16:30 All other systems are negative. Exam: 16:33 Constitutional: The patient appears in no acute distress, alert, awake, cp non-diaphoretic, non-toxic, well developed, well nourished, uncomfortable. 16:33 Head/Face: Normocephalic, atraumatic. cp 16:33 Eyes: Periorbital structures: appear normal, Conjunctiva: normal, no exudate, no injection, Sclera: no appreciated abnormality, Lids and lashes: appear normal, bilaterally. 16:33 ENT: External ear(s): are unremarkable, Nose: is normal, Mouth: Lips: moist, Oral mucosa: moist, Posterior pharynx: Airway: normal. 16:33 Neck: ROM/movement: is normal, is supple, without pain, no range of motions limitations. 16:33 Chest/axilla: Inspection: normal. 16:33 Cardiovascular: Rate: tachycardic, Rhythm: regular, Edema: is not appreciated, JVD: is not appreciated. 16:33 Respiratory: the patient does not display signs of respiratory distress, Respirations: normal, no use of accessory muscles, no retractions, labored breathing, is not present, Breath sounds: are clear throughout, no decreased breath sounds, no stridor, no wheezing. 16:33 Abdomen/GI: Inspection: abdomen appears normal, Palpation: abdomen is soft and non-tender, in all quadrants. 16:33 Back: pain, that is moderate, of the lumbar area and left low back, ROM is painful, with all movement. 16:33 Skin: cellulitis, is not appreciated, no rash present. 16:33 Neuro: Motor: moves all fours, strength is normal, Sensation: is normal, Deep tendon reflexes are 2+ (normal) in the right patellar, right Achilles, left patellar and left Achilles. Vital Signs: 15:55 BP 141 / 82; Pulse 107; Resp 18; Temp 98.2(TE); Pulse Ox 96% ; Weight 92.99 kg; Height ab2 6 ft. 0 in. (182.88 cm); Pain 10/10; 16:15 BP 122 / 74 LA Supine (man/reg); Pulse 98 LA; Resp 16 S; Pulse Ox 95% ; Pain 10/10; ag7 17:30 Pain 5/10; ag7 17:30 Pain 5/10; ag7 18:45 BP 154 / 85 RA Supine (man/reg); Pulse 74 RA; Resp 18; Pulse Ox 99% on R/A; Pain 0/10; ag7 15:55 Body Mass Index 27.80 (92.99 kg, 182.88 cm) ab2 MDM: 16:03 Patient medically screened. cp 17:00 Differential diagnosis: Cholelithiasis chronic back pain, Fracture Pyelonephritis cp ruptured disc, spinal injury, Ureterolithiasis vertebral fracture. 18:08 Data reviewed: vital signs, nurses notes, lab test result(s), radiologic studies, CT cp scan. 18:08 Counseling: I had a detailed discussion with the patient and/or guardian regarding: the cp historical points, exam findings, and any diagnostic results supporting the discharge/admit diagnosis, lab results, radiology results, the need for outpatient follow up, for definitive care, a family practitioner, a painter hand, to return to the emergency department if symptoms worsen or persist or if there are any questions or concerns that arise at home. Response to treatment: the patient's symptoms have markedly improved after treatment, and as a result, I will discharge patient. 18:08 ED course: VSS. Pain markedly improved. CT negative for acute findings. Will discharge cp to home for continued monitoring. 01/10 16:10 Order name: Urine Microscopic Only; Complete Time: 18:07 cp 01/10 18:07 Interpretation: Reviewed. 01/10 17:43 Order name: Urine Dipstick-Ancillary; Complete Time: 17:49 EDMS 01/10 17:49 Interpretation: UESTR Trace; Reviewed. 01/10 16:10 Order name: CT Lumbar Spine Wo Con; Complete Time: 16:53 cp 01/10 16:10 Order name: CT Pelvis wo Cont; Complete Time: 16:53 cp 01/10 16:55 Interpretation: Report reviewed. 01/10 16:10 Order name: Urine Dipstick-Ancillary (obtain specimen); Complete Time: 17:45 cp Administered Medications: 16:57 Drug: traMADol 50 mg Route: PO; ag7 17:30 Follow up: Pain 5/10 Adult; Response: No adverse reaction; Pain is decreased; RASS: ag7 Alert and Calm (0) 16:58 Drug: Lidoderm Patch 5 % (700 mg/patch) 1 patches Route: Topical; Site: affected area; ag7 17:30 Follow up: Pain 5/10 Adult; Response: No adverse reaction; Pain is decreased; RASS: ag7 Alert and Calm (0) Disposition: 21:49 Co-signature as Attending Physician, Boilvar Mohan DO I agree with the assessment and ms3 plan of care. Disposition Summary: 01/10/22 18:09 Discharge Ordered Location: Home cp Problem: an acute exacerbation cp Symptoms: have improved cp Condition: Stable cp Diagnosis - Low back pain cp - Radiculopathy, lumbosacral region cp Followup: cp - With: Private Physician - When: 2 - 3 days - Reason: Recheck today's complaints Discharge Instructions: - Discharge Summary Sheet cp - Chronic Back Pain cp - Lumbosacral Radiculopathy cp - Heat Therapy cp - Back Exercises cp Forms: - Medication Reconciliation Form cp - Thank You Letter cp - Antibiotic Education cp - Prescription Opioid Use cp Prescriptions: - Lidoderm 5 % Topical adhesive patch,medicated - apply 1 patch by TOPICAL route once daily; 1 box; Refills: 0, Product Selection cp Permitted - Tramadol 50 mg Oral Tablet - take 1 tablet by ORAL route every 8 hours as needed; 12 tablet; Refills: 0, cp Product Selection Permitted Signatures: Dispatcher [employer] EDPR Kapil Hines PA PA cp Sims, Marcus, DO DO ms3 Uriel Youssef Angela, RN RN ag7 Corrections: (The following items were deleted from the chart) 16:19 16:15 Home Meds: alfalfa Oral; ag7 ag7 16:19 16:15 Home Meds: aspirin 81 mg Oral TbEC 1 tab once daily; ag7 ag7
--- NOTE | 2022-01-10 18:10 | ER ---
Nurse's Notes [facility] Name: Manuelito Najera Age: 81 yrs Sex: Male : 1940 Arrival Date: 01/10/2022 Time: 15:51 Bed 19 Private MD: Diagnosis: Low back pain;Radiculopathy, lumbosacral region Presentation: 01/10 15:55 Chief complaint: Patient states: "I've been having real bad back pain, on the left ab2 side, it started on Sunday.". Coronavirus screen: Vaccine status: Patient reports being unvaccinated. Client denies travel out of the [place] in the last 14 days. At this time, the client does not indicate any symptoms associated with coronavirus-19. Ebola Screen: Patient negative for fever greater than or equal to 101.5 degrees Fahrenheit, and additional compatible Ebola Virus Disease symptoms Patient denies exposure to infectious person. Patient denies travel to an Ebola-affected area in the 21 days before illness onset. No symptoms or risks identified at this time. Initial Sepsis Screen: Does the patient meet any 2 criteria? No. Patient's initial sepsis screen is negative. Does the patient have a suspected source of infection? No. Patient's initial sepsis screen is negative. Risk Assessment: Do you want to hurt yourself or someone else? Patient reports no desire to harm self or others. Onset of symptoms is unknown. 15:55 Method Of Arrival: Wheelchair ab2 15:55 Acuity: EVGENY 3 ab2 Triage Assessment: 15:58 General: Appears in no apparent distress. comfortable, Behavior is calm, cooperative, ab2 appropriate for age. Pain: Complains of pain in back Pain currently is 10 out of 10 on a pain scale. Musculoskeletal:. Historical: - Allergies: 15:57 No Known Allergies; ab2 - Home Meds: 16:15 Zantac Oral [Active]; ag7 16:18 allopurinol 100 mg Oral tab 1 tab once daily [Active]; B-12 1000 [Active]; carvedilol ag7 12.5 mg Oral tab [Active]; losartan 25 mg Oral tab 0.5 tab once daily [Active]; pravastatin 40 mg Oral tab 1 tab once daily [Active]; prostate lest [Active]; - PMHx: 15:57 GERD; Hyperlipidemia; Hypertension; Parkinsons; ab2 - PSHx: 15:57 None; ab2 - Immunization history:: Adult Immunizations up to date. - Social history:: Smoking status: Patient denies any tobacco usage or history of. Screenin:14 Abuse screen: Denies threats or abuse. Nutritional screening: No deficits noted. ag7 Tuberculosis screening: No symptoms or risk factors identified. Fall Risk Fall in past 12 months (25 points). No secondary diagnosis (0 pts). No IV (0 pts). Ambulatory Aid- None/Bed Rest/Nurse Assist (0 pts). Gait- Weak (10 pts.). Mental Status- Oriented to own ability (0 pts). Total Brooks Fall Scale indicates Low Risk Score (25-44 pts). Fall prevention measures have been instituted. Placed close to Nursing Station Frequent Obs/Assesments occuring Family Present and informed to notify staff if they need to leave bedside As available Patient and Family Educated on Fall Prevention Program and strategies. Assessment: 16:06 General: Appears in no apparent distress. Behavior is calm, cooperative, appropriate ag7 for age, Reports left lower back pain that runs to left leg. Pain: Complains of pain in low back to left, left leg Pain radiates to left leg Pain currently is 10 out of 10 on a pain scale. Quality of pain is described as hurt Pain began suddenly, Is continuous, Alleviated by rest, Aggravated by increased activity. Neuro: Level of Consciousness is awake, alert, obeys commands, Oriented to person, place, situation, Orthotics Prosthetics Assistant are equal bilaterally Reports. Cardiovascular: Heart tones S1 S2 apical irregular. Capillary refill < 3 seconds Patient's skin is warm and dry. Respiratory: Airway is patent Trachea midline Respiratory effort is even, unlabored, Respiratory pattern is regular, symmetrical, Breath sounds are clear bilaterally. Musculoskeletal: Range of motion: limited in left hip Reports weakness in back and left leg pain in back and left leg. 17:05 Reassessment: Patient and/or family updated on plan of care and expected duration. Pain ag7 level reassessed. Patient is alert, oriented x 3, equal unlabored respirations, skin warm/dry/pink. pain 5/10 Patient states symptoms have improved. 18:00 Reassessment: Patient and/or family updated on plan of care and expected duration. Pain ag7 level reassessed. Patient is alert, oriented x 3, equal unlabored respirations, skin warm/dry/pink. Patient states feeling better. Patient states symptoms have improved. Vital Signs: 15:55 BP 141 / 82; Pulse 107; Resp 18; Temp 98.2(TE); Pulse Ox 96% ; Weight 92.99 kg; Height ab2 6 ft. 0 in. (182.88 cm); Pain 10/10; 16:15 BP 122 / 74 LA Supine (man/reg); Pulse 98 LA; Resp 16 S; Pulse Ox 95% ; Pain 10/10; ag7 17:30 Pain 5/10; ag7 17:30 Pain 5/10; ag7 18:45 BP 154 / 85 RA Supine (man/reg); Pulse 74 RA; Resp 18; Pulse Ox 99% on R/A; Pain 0/10; ag7 15:55 Body Mass Index 27.80 (92.99 kg, 182.88 cm) ab2 ED Course: 15:51 Patient arrived in ED. kz 15:53 Kapil Hines PA is PHCP. cp 15:54 Bolivar Mohan DO is Attending Physician. cp 15:57 Triage completed. ab2 15:58 Arm band placed on left wrist. ab2 15:59 Netta Sandoval, RN is Primary Nurse. ag7 16:15 Patient has correct armband on for positive identification. Bed in low position. Call ag7 light in reach. Adult w/ patient. 16:32 CT Lumbar Spine Wo Con In Process Unspecified. EDMS 16:32 CT Pelvis wo Cont In Process Unspecified. EDMS 18:46 No provider procedures requiring assistance completed. ag7 18:47 Patient did not have IV access during this emergency room visit. ag7 Administered Medications: 16:57 Drug: traMADol 50 mg Route: PO; ag7 17:30 Follow up: Pain 5/10 Adult; Response: No adverse reaction; Pain is decreased; RASS: ag7 Alert and Calm (0) 16:58 Drug: Lidoderm Patch 5 % (700 mg/patch) 1 patches Route: Topical; Site: affected area; ag7 17:30 Follow up: Pain 5/10 Adult; Response: No adverse reaction; Pain is decreased; RASS: ag7 Alert and Calm (0) Outcome: 18:09 Discharge ordered by . cp 18:46 Discharged to home via wheelchair. ag7 18:46 Condition: stable 18:46 Discharge instructions given to patient, Instructed on discharge instructions, follow up and referral plans. medication usage, Demonstrated understanding of instructions, follow-up care, medications, Prescriptions given X 2. 18:49 Patient left the ED. ag7 Signatures: Dispatcher [employer] EDMS Kapil Hines PA PA cp Bleininger, Alexis ab2 Zapata, Kelly kz Glenn, Angela RN RN ag7 Corrections: (The following items were deleted from the chart) 16:19 16:15 Home Meds: alfalfa Oral; ag7 ag7 16:19 16:15 Home Meds: aspirin 81 mg Oral TbEC 1 tab once daily; ag7 ag7
[2022-01-10 19:43] VITALS: TEMP 98.2
[2022-01-10 19:47] VITALS: BP 154/85; O2SAT 99
== END 2022-01-10 18:49 | disposition home or self-care (01) ==
LOC: ER 15:47
DX: M54.17 Radiculopathy, lumbosacral region (principal); I10 Essential (primary) hypertension; G20 Parkinson's disease; E78.5 Hyperlipidemia, unspecified; K21.9 Gastro-esophageal reflux disease without esophagitis
CPT/HCPCS: 72131; 72192; 81003; 81015; 99283